=== PATIENT | female | born 1950 | race Caucasian/White ===

== ENCOUNTER → 2017-12-14 | Outpatient (CLI) | payer MEDICARE | LOC: GMATM 12:43 | PROVIDERS: ATTEND Nurse Practitioner Family | DX: N30.00 Acute cystitis without hematuria (principal) ==

== ENCOUNTER → 2018-02-05 | Outpatient (CLI) | payer MEDICARE ==
--- NOTE | 2018-02-06 16:06 | MAM ---
EXAM DESCRIPTION: 3D Screening BILATERAL : Digital Mammography. CLINICAL HISTORY: 67 years Female ANNUAL SCREENING . No complaints or personal history of breast cancer.. Remote family history of breast cancer. Childbirth. Hysterectomy 22 years ago. No HRT Lifetime risk of developing breast cancer (Tyrer-Cuzick model)(%): 4.8. COMPARISON: Baseline study at this facility. No prior reports available. TECHNIQUE: Bilateral CC and MLO projection full-field images, digital tomosynthesis mammographic technique. Bilateral digital 2-D full-field MLO images. CAD not available for tomosynthesis or 2-D images. FINDINGS: The breast parenchymal density pattern is: Scattered areas of fibroglandular density. No skin thickening or nipple retraction. Birads 2 Findings. Focal asymmetry at the 12:00 to 1:00 position of the right breast 3 cm from the nipple. This is more dense than the surrounding fibroglandular tissues. No new focal, stellate mass or density, focal asymmetry , and no suspicious microcalcifications left breast. IMPRESSION: BI-RADS CATEGORY: 0 - INCOMPLETE- Need additional imaging evaluation. FOLLOW-UP: Recall for additional imaging: Targeted right breast ultrasound in the region of interest. Possible follow-up diagnostic digital tomosynthesis imaging if indicated by ultrasound study. Written communication concerning the IMPRESSION and Follow-up, will be mailed to the patient and referring health care provider. Electronically signed by: Stevo Terry MD 02/06/2018 4:05 PM ARCHITECTURE ANALYST
== END ==
LOC: MAMMO 09:30
PROVIDERS: ATTEND Family Medicine
DX: Z12.31 Encounter for screening mammogram for malignant neoplasm of breast (principal)

== ENCOUNTER → 2018-03-07 | Outpatient (CLI) | payer MEDICARE ==
--- NOTE | 2018-03-07 17:46 | US ---
EXAM DESCRIPTION: Breast,Right: Ultrasound CLINICAL HISTORY: 67 yearsFemaleABNORMAL MAMMO COMPARISON: Digital screening tomosynthesis bilateral breast 02/05/2018. TECHNIQUE: Transcutaneous scanning of the upper anterior right breast utilizing valdes-scale and Doppler modes. Scanning performed by the ortho rn; exam was reviewed at remote location by Dr. Terry. FINDINGS: Scanning of the anterior third upper right breast. Heterogeneous fibroglandular and fatty echotexture. Hypoechoic circumscribed mass with central echogenicity but no significant vascularity at the 12:00 position with dimensions 5.1 x 3.3 x 4.8 mm. Parallel orientation and mostly posterior enhancement features. Second mass with Mostly anechoic structure with circumscribed and lobulated margins wider than tall orientation and some images measuring 4.0 x 4.0 x 3.5 mm. Adjacent to the previously described mass. Nonvascular, posterior enhancement features. May represent 2 adjoining cysts. No dominant, abnormal appearing, solid mass. No parenchymal edema or large calcifications. No overlying skin changes. Normal vascularity. IMPRESSION: BI-RADS CATEGORY: 3 - PROBABLY BENIGN. Management: Short interval (6-month) follow-up with targeted right breast ultrasound and continued 6 month surveillance digital right breast mammography. The FINDINGS and the FOLLOW-UP plan were reviewed in person with the patient after the examination. Written communication explaining the IMPRESSION and FOLLOW-UP will be mailed to the patient and referring care provider. Electronically signed by: Stevo Terry MD 03/07/2018 5:45 PM [employer]
== END ==
LOC: MAMMO 13:12
PROVIDERS: ATTEND Family Medicine
DX: R92.8 Other abnormal and inconclusive findings on diagnostic imaging of breast (principal)

== ENCOUNTER → 2020-03-25 | Outpatient (CLI) | payer MEDICARE, OTHER ==
--- NOTE | 2020-03-25 15:27 | RAD ---
EXAM DESCRIPTION: Hand,Left 3 Views CLINICAL HISTORY: 69 years Female, PAIN COMPARISON: None. 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 Osteopenia. No acute fracture or dislocation. No focal soft tissue swelling. No osseous erosion. Mild scattered IP osteoarthritis. IMPRESSION: Degenerative changes in the left hand. No acute osseous abnormality. Electronically signed by: Augustine Bean MD 03/25/2020 3:25 PM [facility]
--- NOTE | 2020-03-25 15:27 | RAD ---
EXAM DESCRIPTION: Hand,Right 3 Views CLINICAL HISTORY: 69 years Female, PAIN COMPARISON: None. Findings: 3 view(s)/radiograph(s) Moderate first CMC osteoarthritis. Moderate osteoarthritis of the first metacarpal row. Osteopenia. No acute fracture or dislocation. No focal soft tissue swelling. Moderate scattered IP osteoarthritis. No osseous erosion. IMPRESSION: Degenerative changes in the right hand. No acute osseous abnormality. Electronically signed by: Augustine Bean MD 03/25/2020 3:26 PM [facility]
== END ==
LOC: RAD 09:10
PROVIDERS: ATTEND Orthopaedic Surgery
DX: M79.641 Pain in right hand (principal); M79.642 Pain in left hand